=== PATIENT | male | born 1950 | race Two or more races ===

== ENCOUNTER 2023-02-07 20:33 | Inpatient (IN) | payer MEDICARE, OTHER ==
[~2023-02-07] VITALS: Ht 175.3 cm; Wt 83.9 kg
--- NOTE | 2023-02-07 20:49 | NUR ---
[facility] FOR 5150 HOLD FOR GRAVELY DISABLED. PLACED IN BED, NON-VERBAL, RESTLESS, BREATHING UNLABORED SATURATING AT 96%RA.
--- NOTE | 2023-02-07 20:50 | NUR ---
PRINTING PLATE MAKER AT BEDSIDE
[2023-02-07 21:16] LABS: BASOPHILS % (AUTO) 0.3 % (0.0-2.0); EOSINOPHILS % (AUTO) 0.7 % (0.0-6.0); HEMATOCRIT 44 % (39-51); HEMOGLOBIN 14.5 g/dL (13.5-17.5); LYMPHOCYTES # (AUTO) 1.9 K/uL (0.8-4.8); LYMPHOCYTES % (AUTO) 16.2 % (20.0-44.0); MEAN CORPUSCULAR HGB CONC 33 g/dl (31.0-36.0); MEAN CORPUSCULAR VOLUME 86 fL (80-96); MONOCYTES # (AUTO) 0.7 K/uL (0.1-1.30); MONOCYTES % (AUTO) 5.7 % (2.0-12.0); NEUTROPHILS % (AUTO) 77.1 % (43.0-81.0); PLATELET COUNT (AUTO) 145 K/uL (150-450); RED BLOOD CELL COUNT(AUTO) 5.05 MIL/uL (4.5-6.0); WHITE BLOOD COUNT (AUTO) 11.7 K/uL (4.3-11.0)
--- NOTE | 2023-02-07 21:19 | NUR ---
SWAB FOR COVID19 SENT TO LAB
--- NOTE | 2023-02-07 21:30 | NUR ---
URINE SAMPLE SENT TO LAB
[2023-02-07 21:42] LABS: ALANINE AMINOTRANSFERASE 27 U/L (12-78); ALBUMIN 3.5 g/dL (3.4-5.0); ALKALINE PHOSPHATASE 83 U/L (46-116); ASPARTATE AMINOTRANSFERASE 22 U/L (15-37); BILIRUBIN,DIRECT 0.2 mg/dL (0.0-0.2); BILIRUBIN,TOTAL 0.6 mg/dL (0.2-1.0); CALCIUM, SERUM 9.9 mg/dL (8.5-10.1); CARBON DIOXIDE 23 mmol/L (21-32); CHLORIDE 102 mmol/L (98-107); CREATININE 0.8 mg/dL (0.6-1.3); GLUCOSE 256 mg/dL (74-106); POTASSIUM 3.8 mmol/L (3.5-5.1); SODIUM SERUM 135 mmol/L (136-145); TOTAL PROTEIN, SERUM 8.3 g/dL (6.4-8.2); UREA NITROGEN, BLOOD 25 mg/dL (7-18)
[2023-02-07 21:58] LABS: ACETAMINOPHEN < 10 ug/ml (10-30)
[2023-02-07 21:59] LABS: ALCOHOL, BLOOD < 3 mg/dL (0-0)
[2023-02-07 22:12] LABS: BILIRUBIN,URINE 1+ (NEGATIVE); COLOR,URINE YELLOW (YELLOW); LEUKOCYTE ESTERASE ,URINE NEGATIVE (NEGATIVE); NITRITE, URINE NEGATIVE (NEGATIVE); PROTEIN,URINE 3+ mg/dl (NEGATIVE); UGLUCOSE NEGATIVE (NEGATIVE); UROBILINOGEN,URINE 0.2 EU/dL (0.2)
--- NOTE | 2023-02-07 22:16 | NUR ---
PATIENT ON HOLD 5150 GRAVELY DISABLED PERSON FORMS FILLED AND SIGNED BY SELINA DIRECTOR INTERNAL AUDIT.
[2023-02-07 22:29] LABS: BACTERIA,URINE Few /HPF (None Seen); SQUAMOUS EPITHELIAL CELL,UR Few /HPF (None Seen); WBC,URINE NONE SEEN /HPF (0-3)
[2023-02-07] MEDS ORDERED: DEXTROSE 50%-WATER 50 ML DISP.SYRIN IV PRN (22:30)
[2023-02-07] MEDS ORDERED: DEXL60CA3 PO (23:08)
[2023-02-07] MEDS ORDERED: EXEN2AUT SQ (23:08)
[2023-02-07] MEDS ORDERED: DAPA10TA PO (23:08)
[2023-02-07] MEDS ORDERED: QUET100T PO (23:08)
[2023-02-07] MEDS ORDERED: ZIPR20CA2 INJ (23:08)
[2023-02-07] MEDS ORDERED: LINA145C PO (23:12)
[2023-02-07] MEDS ORDERED: PREG300C PO (23:12)
[2023-02-07] MEDS ORDERED: PREG150C PO (23:12)
--- NOTE | 2023-02-07 23:17 | NUR ---
REPORT GIVEN TO MICHELLE SIMON ROOM 216-B FOR MAGEN
[2023-02-08] MEDS ORDERED: INSU100V37 SQ (00:41)
[2023-02-08] MEDS ORDERED: DEXL60CA3 PO (00:41)
[2023-02-08] MEDS ORDERED: DONE5TAB34 PO (00:41)
[2023-02-08] MEDS ORDERED: BUPR1PAT3 TD (00:41)
[2023-02-08] MEDS ORDERED: ATOR40TA PO (00:41)
[2023-02-08] MEDS ORDERED: QUET50TA PO ×2 (00:41)
[2023-02-08] MEDS ORDERED: ATOR20TA PO (00:41)
[2023-02-08] MEDS ORDERED: DULO60CA45 PO (00:41)
[2023-02-08] MEDS ORDERED: QUET100T PO (00:41)
[2023-02-08] MEDS ORDERED: DAPA5TAB PO (00:41)
[2023-02-08] MEDS ORDERED: DOCU100T2 PO (00:41)
--- NOTE | 2023-02-08 00:47 | NUR ---
PT TRANSPORTED TO UNIT ON [facility] WITH EMT AT BEDSIDE. PT IS IN STABLE CONDITION.
[2023-02-08] MEDS ORDERED: BLOOD SUGAR DIAGNOSTIC 1 EACH STRIP IN ONE (01:00)
[2023-02-08] MEDS ORDERED: ACETAMINOPHEN 325 MG TABLET PO PRN (01:00)
[2023-02-08] MEDS ORDERED: TEMAZEPAM 7.5 MG CAPSULE PO PRN (01:00)
[2023-02-08] MEDS ORDERED: MAG HYDROX/AL HYDROX/SIMETH 30 ML UDC PO PRN (01:00)
[2023-02-08] MEDS ORDERED: LORAZEPAM 0.5 MG TABLET PO PRN (01:00)
--- NOTE | 2023-02-08 01:40 | NUR ---
RN NOTES; ADMITTED A 72Y/O MALE FROM [facility] EVALUATED FROM [facility] ER.5150 HOLD GD,PT IS BROUGHT FOR EVALUATION D/T GRAVELY DISABLE,PT ADMITTING DX PSYCHOSIS/BIPOLAR,PT NONE VERBAL BUT COOPERATIVE,CALM,NO SOB/DISTRESS NOTED,NO SIGN OF PAIN/DISCOMFORT AT THIS TIME,PT IS UNDER THE CARE OF MARTINA MORILLO K.WAS NOTIFIED,BELONGING COLLECTED FOR CONTRABAND CHECK,PT UNABLE TO SIGN THE PAPER WORK,NOTIFIED RESPONSIBLE CONSTITUTION PARTY OF THE ADMISSION,KEPT PT CLEAN AND DRY AT ALL TIME,WILL CONTINUE TO MONITOR [id number] FOR SAFETY.
[2023-02-08] MEDS ORDERED: DOCUSATE SODIUM 100 MG CAPSULE PO PRN (03:30)
[2023-02-08] MEDS: PANTOPRAZOLE 40 MG TABLET.DR PO SCH (07:30)
[2023-02-08] MEDS: BLOOD SUGAR DIAGNOSTIC 1 EACH STRIP IN SCH ×4 (07:30→21:47)
--- NOTE | 2023-02-08 07:43 | NUR ---
DEBIT AGENT NOTE PATIENT REFUSED ACCU CHECKS AND PROTONIX. PATIENT AGITATED AND DID NOT WANT TO BE BOTHERED.
[2023-02-08 08:00] VITALS: BP 159/67
[2023-02-08] MEDS ORDERED: Medication Not On Formulary EA (Linaclotide (Linzess) 145 MCG) PO SCH (09:00)
[2023-02-08] MEDS ORDERED: Medication Not On Formulary EA (Dapagliflozin Propanediol (Farxiga) 5 MG) PO SCH (09:00)
[2023-02-08] MEDS: ATORVASTATIN 10 MG TABLET PO SCH (09:00)
[2023-02-08] MEDS: PREGABALIN 25 MG CAPSULE PO SCH ×2 (09:00→17:00)
--- NOTE | 2023-02-08 09:24 | NUR ---
STOCK CONTROL CLERK NOTE PATIENT REFUSED 0900 MEDS
[2023-02-08] MEDS: DONEPEZIL 5 MG TABLET PO SCH (11:00)
[2023-02-08] MEDS: DAPAGLIFLOZIN PROPANEDIOL 5 MG TABLET PO SCH (12:00)
[2023-02-08] MEDS: LORAZEPAM 0.5 MG TABLET PO SCH ×2 (12:30→17:00)
[2023-02-08] MEDS: risperiDONE-M 0.5 MG TAB.RAPDIS PO SCH ×2 (12:30→17:00)
--- NOTE | 2023-02-08 13:05 | NUR ---
OUTSIDE SALES PROFESSIONAL NOTE PATIENT REFUSING MEDS. PATIENT WILL LOOK AWAY WHEN STAFF WALKS INTO ROOM AND CLOSE HIS EYES AND PRETEND TO BE SLEEPING. THEN SOON THE STAFF WALKS OUT HE OPENS HIS EYES.
--- NOTE | 2023-02-08 15:24 | NUR ---
Treatment Plan: Pt refused to sign treatment plan and was suspicious.
--- NOTE | 2023-02-08 15:24 | NUR ---
CORNELIUS Initial Discharge Plan: Per hold, patient lives at [facility] [facility] [address] [place] [id number]. Daughter Nallely ([phone]) involved, CORNELIUS will contact to gather collateral and discuss treatment/discharge plan. CORNELIUS will work with the MD, family, and treatment team to help coordinate appropriate discharge.
--- NOTE | 2023-02-08 15:24 | NUR ---
CORNELIUS Clinical Note: Pt placed on a 5150 hold for GD. Per hold, pt has been wandering off and has been urinating. Per hold, patient lives at [address] [place] [address]. Daughter Nallely ([phone]) involved, CORNELIUS will contact to gather collateral and discuss treatment/discharge plan. CORNELIUS will work with the MD, family, and treatment team to help coordinate appropriate discharge.
--- NOTE | 2023-02-08 15:32 | NUR ---
CORNELIUS Family Contact: SW attempted to contact pt's daughter Nallely ([phone]) and left a detailed voicemail.
[2023-02-08 16:00] VITALS: BP 148/87
--- NOTE | 2023-02-08 16:27 | NUR ---
RN-CO: PT REFUSED MRSA SWAB, GOT AGITATED WHEN APPROACHED.
--- NOTE | 2023-02-08 17:46 | NUR ---
DUST COLLECTOR ATTENDANT NOTE PATIENT REFUSED EVENING MEDS. & ACCU CHECK. PULLED INCORRECT AMOUNT OF PREGABLIN, NOTIFIED CHARGE. CORRECTED ISSUE IN OMNI CELL, NOTIFIED PHARMACY.
--- NOTE | 2023-02-08 18:02 | NUR ---
PAID SEARCH MANAGER MED NOTE PHARMACY REQUESTING PATIENTS FAMILY TO BRING HOME MEDICATION (LINACLOTIDE) IN, THEY DO NOT STOCK IT. CALLED PATIENTS DAUGHTER TWICE AND LEFT VOICEMAIL TO ASK IF SHE IS ABLE TO BRING THIS MEDICATION IN AND NO RESPONSE BACK FROM PATIENTS DAUGHTER. WILL ENDORSE TO FREQUENCY CHECKER NURSE. PATIENTS DAUGHTER: ESTUARDO [phone]
[2023-02-08] MEDS: PREGABALIN 100 MG CAPSULE PO SCH ×2 (21:17→21:46)
--- NOTE | 2023-02-08 21:49 | NUR ---
RN NOTES; PATIENT REFUSED 2200 MEDS AND BS CHECK
[2023-02-08] MEDS ORDERED: ATORVASTATIN 40 MG TABLET PO SCH (22:00)
--- NOTE | 2023-02-08 22:00 | NUR ---
RN NOTES; PREGABALIN 300MG WAS RETURN TO BIN BUT I TYPE IN 100MG.200MG NOT WASTED.
--- NOTE | 2023-02-09 07:45 | NUR ---
RN NOTES RECEIVED PATIENT AWAKE IN BED, NON-VERBAL BUT COOPERATIVE,CALM,NO SOB/DISTRESS NOTED,NO SIGN OF PAIN/DISCOMFORT AT THIS TIME, NO C/O PAIN OR DISCOMFORT AT THIS TIME. ALL SAFETY PRECAUTIONS IMPLEMENTED. WILL CONTINUE TO MONITOR.
[2023-02-09] MEDS: BLOOD SUGAR DIAGNOSTIC 1 EACH STRIP IN SCH ×4 (07:47→21:58)
[2023-02-09 08:00] VITALS: BP 142/85
[2023-02-09] MEDS: INSULIN REGULAR, HUMAN 100 UNIT/ML 3 ML VIAL SQ PRN ×4 (08:13→22:00)
[2023-02-09] MEDS: PANTOPRAZOLE 40 MG TABLET.DR PO SCH (08:25)
[2023-02-09] MEDS: LORAZEPAM 0.5 MG TABLET PO SCH ×2 (09:18→17:01)
[2023-02-09] MEDS: DAPAGLIFLOZIN PROPANEDIOL 5 MG TABLET PO SCH (09:18)
[2023-02-09] MEDS: DONEPEZIL 5 MG TABLET PO SCH (09:19)
[2023-02-09] MEDS: risperiDONE-M 0.5 MG TAB.RAPDIS PO SCH ×2 (09:19→17:01)
[2023-02-09] MEDS: PREGABALIN 25 MG CAPSULE PO SCH ×2 (10:00→17:01)
--- NOTE | 2023-02-09 10:00 | NUR ---
RN NOTES ATORVASTIN NOT GIVEN YET, NOT AVAILABLE AT [facility], CALLED PHARMACY TO REPLENISH. WILL FOLLOW UP ON THIS.
[2023-02-09] MEDS: ATORVASTATIN 10 MG TABLET PO SCH (10:32)
--- NOTE | 2023-02-09 11:20 | NUR ---
CORNELIUS Family Contact: SW attempted to contact pt's ([phone]) but phone number did not go through.
[2023-02-09 16:00] VITALS: BP 135/79
--- NOTE | 2023-02-09 16:56 | NUR ---
RN NOTES ACCIDENTALLY PULLED OUT WRONG PREGABALIN DOSE/DOSAGE, RETURNED MEDICATION TO [facility] RIGHT AWAY, NOTIFIED PHARMACY OF THE INCIDENT. WILL MONITOR.
--- NOTE | 2023-02-09 18:27 | NUR ---
PATIENT IS AWAKE A/OX4, ABLE TO MAKE NEEDS KNOWN. BREATHING EVEN AND UNLABORED WITH NO S/S OF DISTRESS PATIENT IS EASILY GETS AGITATED, NEEDY, VERBALLY AGGRESSIVE TOWARDS STAFF. ALL DUE MEDS GIVEN, ENCOURAGED PATIENT TO KEEP CLEAN AND TIDY. ALL SAFETY PRECAUTIONS IMPLEMENTED. WILL ENDORSED TO NIGHT NURSE FOR CONTINUITY OF CARE. Addendum: 02/09/23 at 1828 by CUONG VANCE RN WRONG ENTRY-DISREGARD NOTE
--- NOTE | 2023-02-09 18:30 | NUR ---
RN NOTES SPOKE TO PATIENT'S DAUGHTER, ESTUARDO, MADE A FOLLOW UP ABOUT PATIENT'S MEDICATION, LINACLOTIDE. PER ESTUARDO, THEY DO NOT HAVE REFILL OF THE PILL. PER PHARMACY THE MEDICATION IS NOT AVAILABLE. PARMJIT HOOD NP DC THE MEDICATION.
--- NOTE | 2023-02-09 18:56 | NUR ---
RN NOTES PATIENT SLEEPING IN BED, EASILY AROUSED BY VERBAL STIMULI. PT. IS NON-VERBAL BUT COOPERATIVE,CALM,NO SOB/DISTRESS NOTED,NO SIGN OF PAIN/DISCOMFORT AT THIS TIME, PATIENT IS COMPLIANT WITH MEDICATIONS, ALL DUE MEDS GIVEN. KEPT PATIENT CLEAN AND COMFORTABLE. ALL SAFETY PRECAUTIONS IMPLEMENTED. WILL ENDORSED TO NIGHT NURSE FOR CONTINUITY OF CARE.
--- NOTE | 2023-02-09 19:30 | NUR ---
GPS RN OPENING NOTE RECEIVED PT RESTING IN BED, NONVERBAL BUT NODDED HEAD WHEN ASKED HOW HE IS DOING. A/O X1 AT LEAST BUT UNABLE TO ASSESS FURTHER PT IS NONVERBAL. NO ACUTE DISTRESS NOTED AT THIS TIME. ALL NEEDS ATTENDED ANTICIPATED AT THIS TIME. WILL CONTINUE TO MONITOR FOR SAFETY AND BEHAVIOR.
[2023-02-09 20:46] VITALS: BP 131/81
[2023-02-09] MEDS: PREGABALIN 100 MG CAPSULE PO SCH (22:04)
[2023-02-10] MEDS: BLOOD SUGAR DIAGNOSTIC 1 EACH STRIP IN SCH ×4 (07:36→21:41)
[2023-02-10] MEDS: PANTOPRAZOLE 40 MG TABLET.DR PO SCH (07:36)
[2023-02-10 08:00] VITALS: BP 154/90
[2023-02-10] MEDS: LORAZEPAM 0.5 MG TABLET PO SCH ×2 (08:14→16:35)
[2023-02-10] MEDS: risperiDONE-M 0.5 MG TAB.RAPDIS PO SCH ×3 (08:14→16:35)
[2023-02-10] MEDS: DONEPEZIL 5 MG TABLET PO SCH (08:14)
[2023-02-10] MEDS: PREGABALIN 25 MG CAPSULE PO SCH ×2 (08:22→16:35)
[2023-02-10] MEDS: DAPAGLIFLOZIN PROPANEDIOL 5 MG TABLET PO SCH (08:22)
[2023-02-10] MEDS: INSULIN REGULAR, HUMAN 100 UNIT/ML 3 ML VIAL SQ PRN ×4 (08:36→21:42)
[2023-02-10] MEDS: ATORVASTATIN 40 MG TABLET PO SCH (10:38)
[2023-02-10 16:00] VITALS: BP 134/75
--- NOTE | 2023-02-10 19:20 | NUR ---
RN notes Received Pt in the room resting in bed comfortably. Pt is alert and orientedX1, confused, non verbal, and med compliant. Vs is stable. On room air. No SOB. No S/S of distress noted. Reality orientation provided. Snacks is offered and provided. safety precautions is maintained. Will continue to monitor Q 15 mins checks for safety and behavior.
[2023-02-10 20:00] VITALS: BP 149/89
[2023-02-10] MEDS: PREGABALIN 100 MG CAPSULE PO SCH (21:35)
[2023-02-11] MEDS: BLOOD SUGAR DIAGNOSTIC 1 EACH STRIP IN SCH ×4 (07:39→21:54)
[2023-02-11] MEDS: PANTOPRAZOLE 40 MG TABLET.DR PO SCH (07:53)
[2023-02-11 08:00] VITALS: BP 138/82
[2023-02-11] MEDS: PREGABALIN 25 MG CAPSULE PO SCH ×2 (08:17→16:10)
[2023-02-11] MEDS: LORAZEPAM 0.5 MG TABLET PO SCH ×2 (08:18→16:10)
[2023-02-11] MEDS: DONEPEZIL 5 MG TABLET PO SCH (08:18)
[2023-02-11] MEDS: risperiDONE-M 0.5 MG TAB.RAPDIS PO SCH ×3 (08:18→16:09)
[2023-02-11] MEDS: ATORVASTATIN 40 MG TABLET PO SCH (08:19)
[2023-02-11] MEDS: DAPAGLIFLOZIN PROPANEDIOL 5 MG TABLET PO SCH (08:19)
[2023-02-11] MEDS: INSULIN REGULAR, HUMAN 100 UNIT/ML 3 ML VIAL SQ PRN ×4 (08:21→22:00)
[2023-02-11 16:00] VITALS: BP 153/86
--- NOTE | 2023-02-11 18:31 | NUR ---
RN-NOTES PATIENT LYING IN BED AWAKE,GUARDED,PATIENT IS NONINTERACTIVE AT THIS TIME BUT ABLE TO NOD HIS HEAD,A/O X1,NO ACUTE DISTRESS NOTED.COMPLIANT WITH MEDICATIONS. NEEDS MODERATE ASSIST WITH ADL'S. NOTED PATIENT DISROBING,NEEDS FREQUENT REDIRECTIONS.ALL NEEDS ATTENDED AND ANTICIPATED. ENCOURAGED AND HELP REPOSITION Q2HR. WILL CONT. MONITORING FOR SAFETY AND BEHAVIOR. WILL ENDORSE TO THE INCOMING NURSE FOR THE CONTINUITY OF CARE.
[2023-02-11] MEDS: MAGNESIUM HYDROXIDE 30 ML UDC PO PRN (18:48)
--- NOTE | 2023-02-11 18:48 | NUR ---
RN-NOTES MOM 30ML GIVEN FOR CONSTIPATION. WILL ENDORSE TO INCOMING NURSE TO CONTINUE MONITORING.
[2023-02-11 20:00] VITALS: BP 156/60
[2023-02-11] MEDS: PREGABALIN 100 MG CAPSULE PO SCH (21:56)
--- NOTE | 2023-02-12 07:30 | NUR ---
PT RECEIVED RESTING COMFORTABLY IN BED. NO S/S OR C/O PAIN OR DISTRESS NOTED. SIDE RAILS UP X2. WILL CONTINUE PLAN OF CARE
[2023-02-12 08:00] VITALS: BP 146/82
[2023-02-12] MEDS: ATORVASTATIN 40 MG TABLET PO SCH (09:41)
[2023-02-12] MEDS: LORAZEPAM 0.5 MG TABLET PO SCH ×2 (09:41→17:00)
[2023-02-12] MEDS: PANTOPRAZOLE 40 MG TABLET.DR PO SCH (09:41)
[2023-02-12] MEDS: DAPAGLIFLOZIN PROPANEDIOL 5 MG TABLET PO SCH (09:41)
[2023-02-12] MEDS: DONEPEZIL 5 MG TABLET PO SCH (09:41)
[2023-02-12] MEDS: risperiDONE-M 0.5 MG TAB.RAPDIS PO SCH ×3 (09:42→17:00)
[2023-02-12] MEDS: BLOOD SUGAR DIAGNOSTIC 1 EACH STRIP IN SCH ×4 (09:42→22:28)
[2023-02-12] MEDS: PREGABALIN 25 MG CAPSULE PO SCH ×2 (09:59→17:00)
[2023-02-12] MEDS: INSULIN REGULAR, HUMAN 100 UNIT/ML 3 ML VIAL SQ PRN ×3 (10:09→22:29)
--- NOTE | 2023-02-12 12:00 | NUR ---
MED HELD INSULIN, DUE TO PATIENT REFUSING TO EAT LUNCH.
[2023-02-12 16:00] VITALS: BP_SYST 102; BP_SYST 141; BP_DIAS 58; BP_DIAS 83
[2023-02-12 20:27] VITALS: BP 157/91
[2023-02-12] MEDS: PREGABALIN 100 MG CAPSULE PO SCH (22:21)
[2023-02-13 08:00] VITALS: BP 131/83
[2023-02-13] MEDS: PANTOPRAZOLE 40 MG TABLET.DR PO SCH (08:23)
[2023-02-13] MEDS: BLOOD SUGAR DIAGNOSTIC 1 EACH STRIP IN SCH ×4 (08:30→21:14)
[2023-02-13] MEDS: INSULIN REGULAR, HUMAN 100 UNIT/ML 3 ML VIAL SQ PRN ×4 (08:31→21:45)
[2023-02-13] MEDS: PREGABALIN 25 MG CAPSULE PO SCH ×2 (09:24→16:18)
[2023-02-13] MEDS: DONEPEZIL 5 MG TABLET PO SCH (09:24)
[2023-02-13] MEDS: risperiDONE-M 0.5 MG TAB.RAPDIS PO SCH ×3 (09:25→16:18)
[2023-02-13] MEDS: LORAZEPAM 0.5 MG TABLET PO SCH ×4 (09:25→20:49)
[2023-02-13] MEDS: ATORVASTATIN 40 MG TABLET PO SCH (09:25)
[2023-02-13] MEDS: DAPAGLIFLOZIN PROPANEDIOL 5 MG TABLET PO SCH (09:28)
--- NOTE | 2023-02-13 11:50 | NUR ---
RN NOTE PT'S ACCUCHECK DONE AND BS IS 140 MG/DL WITH 2UNIT INSULIN COVERAGE PER SLIDING SCALE. PT REFUSED THE 2 UNIT INSULIN COVERAGE. EXPLAINED RISK AND BENEFITS, PT STILL REFUSED.
--- NOTE | 2023-02-13 12:04 | NUR ---
Court Hearing: Patient's court hearing for 1530 was today and it was upheld for GD.
--- NOTE | 2023-02-13 12:04 | NUR ---
Court Notification: SW attempted to contact pt's daughter Nallely ([phone]) and left a voicemail of [phone] hearing.
[2023-02-13] MEDS ORDERED: VENLAFAXINE XR 75 MG CAP.SR.24H PO SCH (13:00)
[2023-02-13 16:00] VITALS: BP 138/83
--- NOTE | 2023-02-13 16:57 | NUR ---
RN NOTE PT'S ACCUCHECK DONE AND BS IS 147 MG/DL WITH 2UNIT INSULIN COVERAGE PER SLIDING SCALE. PT REFUSED THE 2 UNIT INSULIN COVERAGE. EXPLAINED RISK AND BENEFITS, PT STILL REFUSED.
[2023-02-13 19:55] VITALS: BP 122/75
[2023-02-13] MEDS: PREGABALIN 100 MG CAPSULE PO SCH (21:07)
[2023-02-14] MEDS: BLOOD SUGAR DIAGNOSTIC 1 EACH STRIP IN SCH ×4 (07:49→21:25)
[2023-02-14] MEDS: INSULIN REGULAR, HUMAN 100 UNIT/ML 3 ML VIAL SQ PRN ×3 (07:51→21:28)
[2023-02-14 08:00] VITALS: BP 130/85
[2023-02-14] MEDS: risperiDONE-M 0.5 MG TAB.RAPDIS PO SCH ×3 (08:39→16:07)
[2023-02-14] MEDS: LORAZEPAM 0.5 MG TABLET PO SCH ×4 (08:39→21:09)
[2023-02-14] MEDS: DONEPEZIL 5 MG TABLET PO SCH (08:40)
[2023-02-14] MEDS: ATORVASTATIN 40 MG TABLET PO SCH (08:40)
[2023-02-14] MEDS: PANTOPRAZOLE 40 MG TABLET.DR PO SCH (08:40)
[2023-02-14] MEDS: PREGABALIN 25 MG CAPSULE PO SCH ×2 (08:41→16:51)
[2023-02-14] MEDS: DAPAGLIFLOZIN PROPANEDIOL 5 MG TABLET PO SCH (08:43)
--- NOTE | 2023-02-14 10:47 | NUR ---
SNF Referral: CORNELIUS sent clinicals to [facility] ([phone]) for placement. SW sent H & P, progress notes, and medication list.
[2023-02-14] MEDS: BENZTROPINE MESYLATE (1 MG) 1 MG TABLET PO SCH ×2 (10:49→16:07)
--- NOTE | 2023-02-14 11:23 | NUR ---
SNF Contact: SW received [facility] ([phone]) and stated that pt is accepted.
[2023-02-14] MEDS: VENLAFAXINE XR 75 MG CAP.SR.24H PO SCH (12:55)
[2023-02-14 16:00] VITALS: BP 137/90
[2023-02-14 20:15] VITALS: BP 117/73
[2023-02-14] MEDS: PREGABALIN 100 MG CAPSULE PO SCH (21:09)
[2023-02-15 08:00] VITALS: BP 132/82
[2023-02-15] MEDS: BLOOD SUGAR DIAGNOSTIC 1 EACH STRIP IN SCH ×4 (08:30→22:00)
[2023-02-15] MEDS: PANTOPRAZOLE 40 MG TABLET.DR PO SCH (08:30)
[2023-02-15] MEDS: BENZTROPINE MESYLATE (1 MG) 1 MG TABLET PO SCH ×2 (09:05→17:32)
[2023-02-15] MEDS: ATORVASTATIN 40 MG TABLET PO SCH (09:05)
[2023-02-15] MEDS: risperiDONE-M 0.5 MG TAB.RAPDIS PO SCH ×3 (09:06→17:32)
[2023-02-15] MEDS: PREGABALIN 25 MG CAPSULE PO SCH ×2 (09:06→17:32)
[2023-02-15] MEDS: LORAZEPAM 0.5 MG TABLET PO SCH ×4 (09:06→22:10)
[2023-02-15] MEDS: DONEPEZIL 5 MG TABLET PO SCH (09:06)
[2023-02-15] MEDS: DAPAGLIFLOZIN PROPANEDIOL 5 MG TABLET PO SCH (09:10)
[2023-02-15] MEDS: INSULIN REGULAR, HUMAN 100 UNIT/ML 3 ML VIAL SQ PRN (09:11)
[2023-02-15] MEDS: VENLAFAXINE XR 75 MG CAP.SR.24H PO SCH (12:53)
[2023-02-15 16:00] VITALS: BP 129/81
[2023-02-15 20:00] VITALS: BP 128/78
[2023-02-15 20:14] VITALS: BP 128/78
--- NOTE | 2023-02-15 20:49 | NUR ---
RN OPENING NOTES: RECEIVED PATIENT SLEEP IN BED COMFORTABLY, BED IN LOW POSITION, ON ROOM AIR SATURATING WELL, NO SOB WAS OBSERVED,NO COMBATIVE BEHAVIOR WAS OBSERVED, PATIENT KEPT CLEAN AND DRY ALL NEEDS MET WILL CONTINUE TO MONITOR.
[2023-02-15] MEDS: PREGABALIN 100 MG CAPSULE PO SCH (22:10)
--- NOTE | 2023-02-15 22:54 | NUR ---
RN NOTES; BLOOD SUGAR-178- PATIENT REFUSED INSULIN PER SLIDING SCALE.
[2023-02-16 08:00] VITALS: BP 125/76
[2023-02-16] MEDS: BLOOD SUGAR DIAGNOSTIC 1 EACH STRIP IN SCH ×4 (08:26→21:45)
[2023-02-16] MEDS: DONEPEZIL 5 MG TABLET PO SCH (08:27)
[2023-02-16] MEDS: LORAZEPAM 0.5 MG TABLET PO SCH ×4 (08:27→21:45)
[2023-02-16] MEDS: PANTOPRAZOLE 40 MG TABLET.DR PO SCH (08:27)
[2023-02-16] MEDS: BENZTROPINE MESYLATE (1 MG) 1 MG TABLET PO SCH ×2 (08:27→16:37)
[2023-02-16] MEDS: risperiDONE-M 0.5 MG TAB.RAPDIS PO SCH ×3 (08:27→16:37)
[2023-02-16] MEDS: ATORVASTATIN 40 MG TABLET PO SCH (08:27)
[2023-02-16] MEDS: PREGABALIN 25 MG CAPSULE PO SCH ×2 (08:28→16:37)
--- NOTE | 2023-02-16 08:30 | NUR ---
RN- NOTES PATIENT REFUSED INSULIN COVERAGE, BLOOD GLUCOSE NOTED AT 166. EDUCATION AND ENCOURAGEMENT X3 GIVEN, PATIENT CONTINUES TO REFUSE.
[2023-02-16] MEDS: DAPAGLIFLOZIN PROPANEDIOL 5 MG TABLET PO SCH (08:33)
[2023-02-16] MEDS: VENLAFAXINE XR 75 MG CAP.SR.24H PO SCH (12:09)
--- NOTE | 2023-02-16 12:15 | NUR ---
RN- NOTES PATIENT REFUSED INSULIN COVERAGE, BLOOD GLUCOSE NOTED AT 138. EDUCATION AND ENCOURAGEMENT X3 GIVEN, PATIENT CONTINUES TO REFUSE.
[2023-02-16 16:00] VITALS: BP 132/74
--- NOTE | 2023-02-16 16:47 | NUR ---
RN- NOTES PATIENT REFUSED INSULIN COVERAGE, BLOOD GLUCOSE NOTED AT 138. EDUCATION AND ENCOURAGEMENT X3 GIVEN, PATIENT CONTINUES TO REFUSE.
--- NOTE | 2023-02-16 18:46 | NUR ---
RN- CLOSING NOTES PATIENT IS RESTING IN BED, BREATHING EVEN AND NON LABORED WITH NO S/S OF DISTRESS. PATIENT IS ISOLATIVE, DISORIENTED, CONFUSED, GUARDED, QUIET, AND NON VERBAL. PATIENT REFUSED ALL INSULIN COVERAGE, EDUCATION AND ENCOURAGEMENT X3 PROVIDED, PATIENT CONTINUES TO REFUSE. PATIENT IS MEDICATION COMPLIANT OTHERWISE. RESPONDS WITH HEAD AND HAND GESTURES. DENIES SI/HI AT THIS TIME. WILL CONTINUE TO MONITOR Q 15 MINUTES FOR SAFETY AND BEHAVIOR.
[2023-02-16 20:28] VITALS: BP 122/61
[2023-02-16] MEDS: PREGABALIN 100 MG CAPSULE PO SCH (21:45)
[2023-02-16] MEDS: INSULIN REGULAR, HUMAN 100 UNIT/ML 3 ML VIAL SQ PRN (21:48)
--- NOTE | 2023-02-17 06:20 | NUR ---
MULTIPLE CUT OFF SAW OPERATOR NOTES: PATIENT AWAKE IN BED. CALM. BREATHING EVEN AND UNLABORED. NO ACUTE DISTRESS NOTED. NO C/O PAIN. NON-VERBAL, ISOLATIVE. MEDICATION COMPLIANT. ALL NEEDS ANTICIPATED AND ATTENDED. WILL ENDORSE TO ONCOMING SHIFT FOR CONTINUITY OF CARE.
[2023-02-17 08:00] VITALS: BP 120/84
[2023-02-17] MEDS: BLOOD SUGAR DIAGNOSTIC 1 EACH STRIP IN SCH ×4 (08:18→22:02)
[2023-02-17] MEDS: PREGABALIN 25 MG CAPSULE PO SCH ×2 (08:19→16:50)
[2023-02-17] MEDS: risperiDONE-M 0.5 MG TAB.RAPDIS PO SCH ×3 (08:19→16:49)
[2023-02-17] MEDS: DONEPEZIL 5 MG TABLET PO SCH (08:19)
[2023-02-17] MEDS: PANTOPRAZOLE 40 MG TABLET.DR PO SCH (08:20)
[2023-02-17] MEDS: BENZTROPINE MESYLATE (1 MG) 1 MG TABLET PO SCH ×2 (08:20→16:50)
[2023-02-17] MEDS: LORAZEPAM 0.5 MG TABLET PO SCH ×4 (08:20→21:06)
[2023-02-17] MEDS: ATORVASTATIN 40 MG TABLET PO SCH (08:20)
[2023-02-17] MEDS: DAPAGLIFLOZIN PROPANEDIOL 5 MG TABLET PO SCH (09:00)
[2023-02-17] MEDS: VENLAFAXINE XR 75 MG CAP.SR.24H PO SCH (12:59)
[2023-02-17] MEDS: INSULIN REGULAR, HUMAN 100 UNIT/ML 3 ML VIAL SQ PRN ×2 (13:44→22:05)
[2023-02-17 16:00] VITALS: BP 136/86
[2023-02-17] MEDS: DIVALPROEX SODIUM 250 MG TABLET.DR PO SCH (16:50)
[2023-02-17] MEDS: MAGNESIUM HYDROXIDE 30 ML UDC PO PRN (17:53)
--- NOTE | 2023-02-17 19:52 | NUR ---
RN NOTES:RECEIVED PATIENT RESTING IN HIS BED , A/OX1,2. NO S/SX OF ACUTE DISTRESS NOTED. PATIENT IS ,CONFUSED, FORGETFUL ANXIOUS ,DELUSIONAL , PARANOID, ISOLATIVE GUARDED,NEEDS FREQUENTLY REDIRECTIONS, ENCOURAGED TO VERBALIZED ANY FEELING OR CONCERN ,SAFETY PRECAUTIONS MAINTAINED. WILL CONTINUE TO MONITOR Q15MIN ROUNDS FOR SAFETY.
[2023-02-17 20:00] VITALS: BP 123/80
[2023-02-17] MEDS: PREGABALIN 100 MG CAPSULE PO SCH (22:01)
[2023-02-18 08:00] VITALS: BP 127/84
[2023-02-18] MEDS: BLOOD SUGAR DIAGNOSTIC 1 EACH STRIP IN SCH ×4 (09:19→22:07)
[2023-02-18] MEDS: risperiDONE-M 0.5 MG TAB.RAPDIS PO SCH ×3 (09:23→17:22)
[2023-02-18] MEDS: DONEPEZIL 5 MG TABLET PO SCH (09:23)
[2023-02-18] MEDS: BENZTROPINE MESYLATE (1 MG) 1 MG TABLET PO SCH ×2 (09:23→17:21)
[2023-02-18] MEDS: VENLAFAXINE XR 75 MG CAP.SR.24H PO SCH (09:23)
[2023-02-18] MEDS: PREGABALIN 25 MG CAPSULE PO SCH ×2 (09:24→17:21)
[2023-02-18] MEDS: DIVALPROEX SODIUM 250 MG TABLET.DR PO SCH ×3 (09:24→17:21)
[2023-02-18] MEDS: PANTOPRAZOLE 40 MG TABLET.DR PO SCH (09:24)
[2023-02-18] MEDS: ATORVASTATIN 40 MG TABLET PO SCH (09:28)
[2023-02-18] MEDS: LORAZEPAM 0.5 MG TABLET PO SCH ×4 (09:28→21:05)
[2023-02-18] MEDS: DAPAGLIFLOZIN PROPANEDIOL 5 MG TABLET PO SCH (09:29)
[2023-02-18] MEDS: INSULIN REGULAR, HUMAN 100 UNIT/ML 3 ML VIAL SQ PRN ×2 (09:32→21:52)
[2023-02-18 16:18] VITALS: BP 126/82
--- NOTE | 2023-02-18 19:39 | NUR ---
RN NOTES:RECEIVED PATIENT RESTING IN HIS BED , PT. TAKES OFF HIS CLOTHES ,A/OX1,2. NO S/SX OF ACUTE DISTRESS NOTED. PATIENT IS , DISHELVED , FLAT AFFECT ,CONFUSED, FORGETFUL ANXIOUS ,DELUSIONAL , PARANOID, ISOLATIVE GUARDED, LABILE NEEDS ,FREQUENTLY REDIRECTIONS, ENCOURAGED TO VERBALIZED ANY FEELING OR CONCERN ,SAFETY PRECAUTIONS MAINTAINED. WILL CONTINUE TO MONITOR Q15MIN ROUNDS FOR SAFETY.
[2023-02-18 20:56] VITALS: BP 130/77
[2023-02-18] MEDS: PREGABALIN 100 MG CAPSULE PO SCH (22:07)
[2023-02-19 08:00] VITALS: BP 141/77
[2023-02-19] MEDS: BENZTROPINE MESYLATE (1 MG) 1 MG TABLET PO SCH ×2 (09:42→16:20)
[2023-02-19] MEDS: PREGABALIN 25 MG CAPSULE PO SCH ×2 (09:42→16:20)
[2023-02-19] MEDS: DONEPEZIL 5 MG TABLET PO SCH (09:42)
[2023-02-19] MEDS: DIVALPROEX SODIUM 250 MG TABLET.DR PO SCH ×3 (09:42→16:20)
[2023-02-19] MEDS: ATORVASTATIN 40 MG TABLET PO SCH (09:42)
[2023-02-19] MEDS: PANTOPRAZOLE 40 MG TABLET.DR PO SCH (09:43)
[2023-02-19] MEDS: BLOOD SUGAR DIAGNOSTIC 1 EACH STRIP IN SCH ×4 (09:43→22:08)
[2023-02-19] MEDS: VENLAFAXINE XR 75 MG CAP.SR.24H PO SCH (09:43)
[2023-02-19] MEDS: LORAZEPAM 0.5 MG TABLET PO SCH ×4 (09:44→21:14)
[2023-02-19] MEDS: DAPAGLIFLOZIN PROPANEDIOL 5 MG TABLET PO SCH (09:47)
[2023-02-19] MEDS: INSULIN REGULAR, HUMAN 100 UNIT/ML 3 ML VIAL SQ PRN ×2 (09:48→22:10)
[2023-02-19] MEDS: risperiDONE-M 0.5 MG TAB.RAPDIS PO SCH ×3 (11:20→16:21)
--- NOTE | 2023-02-19 12:49 | NUR ---
GPS/RN PT REFUSED ACCUCHECK FOR 1300 OFFERED X3
[2023-02-19 16:00] VITALS: BP 137/78
--- NOTE | 2023-02-19 16:22 | NUR ---
GPS/RN ATIVAN PO HELD PT IS EXCESSIVELY SLEEPY
[2023-02-19 20:28] VITALS: BP 134/79
[2023-02-19] MEDS: PREGABALIN 100 MG CAPSULE PO SCH (21:15)
[2023-02-20 08:00] VITALS: BP 126/79
[2023-02-20] MEDS: BLOOD SUGAR DIAGNOSTIC 1 EACH STRIP IN SCH ×4 (08:25→21:37)
[2023-02-20] MEDS: PANTOPRAZOLE 40 MG TABLET.DR PO SCH (08:26)
[2023-02-20] MEDS: DIVALPROEX SODIUM 250 MG TABLET.DR PO SCH ×3 (08:54→17:31)
[2023-02-20] MEDS: VENLAFAXINE XR 75 MG CAP.SR.24H PO SCH (09:00)
[2023-02-20] MEDS: PREGABALIN 25 MG CAPSULE PO SCH ×2 (09:04→17:30)
[2023-02-20] MEDS: BENZTROPINE MESYLATE (1 MG) 1 MG TABLET PO SCH ×2 (09:05→17:31)
[2023-02-20] MEDS: risperiDONE-M 0.5 MG TAB.RAPDIS PO SCH ×3 (09:05→17:31)
[2023-02-20] MEDS: DONEPEZIL 5 MG TABLET PO SCH (09:05)
[2023-02-20] MEDS: LORAZEPAM 0.5 MG TABLET PO SCH ×4 (09:05→21:31)
[2023-02-20] MEDS: ATORVASTATIN 40 MG TABLET PO SCH (09:05)
[2023-02-20] MEDS: DAPAGLIFLOZIN PROPANEDIOL 5 MG TABLET PO SCH (09:29)
--- NOTE | 2023-02-20 14:14 | NUR ---
CORNELIUS Family Contact: SW attempted to contact pt's daughter Nallely ([phone]) and left a voicemail that pt is accepted at [facility].
[2023-02-20 16:00] VITALS: BP 124/80
[2023-02-20 20:39] VITALS: BP 102/67
[2023-02-20] MEDS: PREGABALIN 100 MG CAPSULE PO SCH (21:31)
[2023-02-21] MEDS: BLOOD SUGAR DIAGNOSTIC 1 EACH STRIP IN SCH ×4 (07:33→21:39)
[2023-02-21] MEDS: PANTOPRAZOLE 40 MG TABLET.DR PO SCH (07:42)
[2023-02-21 08:00] VITALS: BP 116/72
[2023-02-21] MEDS: PREGABALIN 25 MG CAPSULE PO SCH ×2 (09:56→17:39)
[2023-02-21] MEDS: LORAZEPAM 0.5 MG TABLET PO SCH ×4 (09:57→21:15)
[2023-02-21] MEDS: DIVALPROEX SODIUM 250 MG TABLET.DR PO SCH ×3 (09:57→17:38)
[2023-02-21] MEDS: risperiDONE-M 0.5 MG TAB.RAPDIS PO SCH ×3 (09:57→17:38)
[2023-02-21] MEDS: ATORVASTATIN 40 MG TABLET PO SCH (09:57)
[2023-02-21] MEDS: BENZTROPINE MESYLATE (1 MG) 1 MG TABLET PO SCH ×2 (09:57→17:39)
[2023-02-21] MEDS: DONEPEZIL 5 MG TABLET PO SCH (09:57)
[2023-02-21] MEDS: DAPAGLIFLOZIN PROPANEDIOL 5 MG TABLET PO SCH (09:59)
--- NOTE | 2023-02-21 11:12 | NUR ---
CORNELIUS Family Contact: SW attempted to contact pt's daughter Nallely ([phone]) she stated that her number was incorrect in the chart. CORNELIUS fixed this. She is agreeable of pt going to [place] [facility].
--- NOTE | 2023-02-21 11:49 | NUR ---
effexor 37.5mg missed due to wrong formulation came in 75mg unable to cut in half since it is in capsule. pharmacy notified but unable to give dose in time. pharmacy d/c 0.5 capsule of 75mg effexor and started it 02/22 unable to give since start date was on next day. pt will continue on medication starting tomorrow.
[2023-02-21] MEDS: INSULIN REGULAR, HUMAN 100 UNIT/ML 3 ML VIAL SQ PRN ×3 (11:54→21:40)
--- NOTE | 2023-02-21 11:56 | NUR ---
pt bs 126 no insulin per sliding scale.
[2023-02-21 16:00] VITALS: BP 120/73
[2023-02-21 19:34] VITALS: BP 146/88
[2023-02-21] MEDS: PREGABALIN 100 MG CAPSULE PO SCH (21:15)
[2023-02-22 08:00] VITALS: BP 130/82
[2023-02-22 08:20] LABS: BASOPHILS % (AUTO) 0.3 % (0.0-2.0); EOSINOPHILS % (AUTO) 2.9 % (0.0-6.0); HEMATOCRIT 42 % (39-51); HEMOGLOBIN 13.4 g/dL (13.5-17.5); LYMPHOCYTES % (AUTO) 35.6 % (20.0-44.0); MEAN CORPUSCULAR HGB CONC 32 g/dl (31.0-36.0); MEAN CORPUSCULAR VOLUME 91 fL (80-96); MONOCYTES # (AUTO) 0.4 K/uL (0.1-1.30); MONOCYTES % (AUTO) 7.1 % (2.0-12.0); NEUTROPHILS % (AUTO) 54.1 % (43.0-81.0); PLATELET COUNT (AUTO) 114 K/uL (150-450); WHITE BLOOD COUNT (AUTO) 5.6 K/uL (4.3-11.0)
[2023-02-22 08:31] LABS: CALCIUM, SERUM 9.2 mg/dL (8.5-10.1); CARBON DIOXIDE 24 mmol/L (21-32); CHLORIDE 106 mmol/L (98-107); CREATININE 0.9 mg/dL (0.6-1.3); GLUCOSE 107 mg/dL (74-106); MAGNESIUM 2.1 mg/dL (1.8-2.4); PHOSPHORUS 3.8 mg/dL (2.5-4.9); SODIUM SERUM 140 mmol/L (136-145); UREA NITROGEN, BLOOD 14 mg/dL (7-18)
[2023-02-22] MEDS: DIVALPROEX SODIUM 250 MG TABLET.DR PO SCH ×3 (08:39→16:19)
[2023-02-22] MEDS: PANTOPRAZOLE 40 MG TABLET.DR PO SCH (08:39)
[2023-02-22] MEDS: BENZTROPINE MESYLATE (1 MG) 1 MG TABLET PO SCH ×2 (08:39→16:20)
[2023-02-22] MEDS: LORAZEPAM 0.5 MG TABLET PO SCH ×4 (08:39→21:34)
[2023-02-22] MEDS: PREGABALIN 25 MG CAPSULE PO SCH ×2 (08:40→16:19)
[2023-02-22] MEDS: BLOOD SUGAR DIAGNOSTIC 1 EACH STRIP IN SCH ×4 (08:40→21:40)
[2023-02-22] MEDS: risperiDONE-M 0.5 MG TAB.RAPDIS PO SCH ×3 (08:40→16:19)
[2023-02-22] MEDS: ATORVASTATIN 40 MG TABLET PO SCH (08:40)
[2023-02-22] MEDS: DONEPEZIL 5 MG TABLET PO SCH (08:40)
[2023-02-22] MEDS: DAPAGLIFLOZIN PROPANEDIOL 5 MG TABLET PO SCH (08:47)
[2023-02-22] MEDS ORDERED: VENLAFAXINE XR 37.5 MG CAP.SR.24H PO SCH (09:00)
[2023-02-22 16:00] VITALS: BP 131/67
[2023-02-22] MEDS: INSULIN REGULAR, HUMAN 100 UNIT/ML 3 ML VIAL SQ PRN ×2 (16:51→21:41)
--- NOTE | 2023-02-22 17:12 | NUR ---
RN -NOTES PATIENT LYING IN BED INTERMITTENTLY SLEEPING EASILY AROUSED,GUARDED, A/O X1,NO ACUTE DISTRESS NOTED. COMPLIANT WITH MEDICATIONS. PATIENT IS NON AMBULATORY. NEEDS MAXIMUM ASSIST WITH ADL'S. ALL NEEDS ATTENDED AND ANTICIPATED.GOOD RASHAD CARE RENDERED. ALL NEEDS ATTENDED AND ANTICIPATED. WILL ENDORSE TO INCOMING NURSE FOR CONTINUITY OF CARE.
[2023-02-22 20:17] VITALS: BP 114/73
[2023-02-22] MEDS: PREGABALIN 100 MG CAPSULE PO SCH (21:34)
[2023-02-23] MEDS: BLOOD SUGAR DIAGNOSTIC 1 EACH STRIP IN SCH ×2 (07:31→12:22)
[2023-02-23 08:00] VITALS: BP 121/78
[2023-02-23] MEDS: PANTOPRAZOLE 40 MG TABLET.DR PO SCH (08:25)
[2023-02-23] MEDS: DONEPEZIL 5 MG TABLET PO SCH (08:25)
[2023-02-23] MEDS: LORAZEPAM 0.5 MG TABLET PO SCH (08:25)
[2023-02-23] MEDS: DIVALPROEX SODIUM 250 MG TABLET.DR PO SCH ×2 (08:25→12:31)
[2023-02-23] MEDS: ATORVASTATIN 40 MG TABLET PO SCH (08:25)
[2023-02-23] MEDS: BENZTROPINE MESYLATE (1 MG) 1 MG TABLET PO SCH (08:26)
[2023-02-23] MEDS: risperiDONE-M 0.5 MG TAB.RAPDIS PO SCH ×2 (08:26→12:31)
[2023-02-23] MEDS: PREGABALIN 25 MG CAPSULE PO SCH (08:26)
--- NOTE | 2023-02-23 08:51 | NUR ---
SW Discharge Note: Patient will be discharged to [facility] located at [address] [place] [id number]; ([phone]) via ambulance. Marii larsen from [facility] ([phone]) accepted pt and is welcoming pt today. SW attempted to contact pts daughter Nallely ([phone]) and left a voicemail. Pt appears to be alert and oriented x1. Pt denies visual/auditory hallucinations. Pt denies denies suicidal or homicidal ideation. Patient will continue to follow-up with (Psychiatrist) Dr. Rodriges [address] [facility] [address], [place] [address]; ([phone]). ([place]) Dr. Brewer [address] [facility] [address], [place] [address]; ([phone]).
[2023-02-23] MEDS: DAPAGLIFLOZIN PROPANEDIOL 5 MG TABLET PO SCH (09:04)
--- NOTE | 2023-02-23 09:14 | NUR ---
Dr. Rodriges gave an order to D/C hold and D/C to [facility] and to follow up with psych and medical doctors. Dr. Rodriges ordered to continue same meds including prn.
[2023-02-23] MEDS: INSULIN REGULAR, HUMAN 100 UNIT/ML 3 ML VIAL SQ PRN (13:33)
--- NOTE | 2023-02-23 13:45 | NUR ---
RN-NOTES PATIENT HAD A DISCHARGE ORDER FROM DR. MACK ( PSYCHIATRIST) BUDDY OWEN MEDICALLY CLEARED PATIENT FOR DISCHARGE. PATIENT WAS DISCHARGE TO [facility].REPORT WAS GIVEN TO MISTI ( FACILITY MATCHBOOK MAKER). PATIENT DID NOT VERBALIZE SI/HI,DENIES VISUAL/AUDITORY HALLUCINATION UPON DISCHARGE. PATIENT WAS SIGNAL OPERATOR LINGUIST BY AMBULANCE VIA GURNEY WITH TWO STAFF ASSIST. ALL BELONGINGS WAS GIVE BACK TO THE PATIENT.PATIENT LEFT THE UNIT IN STABLE CONDITION A/O X1-2,NON AMBULATORY NEEDS MODERATE ASSIST WITH ADL'S.
[2023-02-23] MEDS ORDERED: LORAZEPAM 0.5 MG TABLET PO SCH (17:00)
== END 2023-02-23 13:45 | DRG 885 ==
LOC: ER 20:35 → GPS 23:16
PROVIDERS: ADMIT Psychiatry & Neurology Psychosomatic Medicine; ATTEND Nurse Practitioner Acute Care
DX: F25.0 Schizoaffective disorder, bipolar type (principal); F32.9 Major depressive disorder, single episode, unspecified; I10 Essential (primary) hypertension; E03.9 Hypothyroidism, unspecified; E11.9 Type 2 diabetes mellitus without complications; N40.0 Benign prostatic hyperplasia without lower urinary tract symptoms; E78.5 Hyperlipidemia, unspecified; F03.90 Unspecified dementia, unspecified severity, without behavioral disturbance, psychotic disturbance, mood disturbance, and anxiety; R41.9 Unspecified symptoms and signs involving cognitive functions and awareness; R79.89 Other specified abnormal findings of blood chemistry; M19.90 Unspecified osteoarthritis, unspecified site; Z20.822 Contact with and (suspected) exposure to COVID-19
CPT/HCPCS: 36415; 80048-TC; 80076-TC; 81001; 82962-TC; 83735-TC; 84100-TC; 85025-TC; C9803; G0480; J1815